=== PATIENT | male | born 1980 | race Caucasian/White ===

== ENCOUNTER 2016-10-29 19:29 | Emergency (ER) | payer MEDICAID ==
[2016-10-29 19:44] VITALS: BP 112/85
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
== END 2016-10-29 20:09 | disposition left against medical advice (07) ==
LOC: ER 19:29
DX: G40.909 Epilepsy, unspecified, not intractable, without status epilepticus (principal); J44.9 Chronic obstructive pulmonary disease, unspecified; J45.909 Unspecified asthma, uncomplicated; Z91.013 Allergy to seafood
CPT/HCPCS: 99281

== ENCOUNTER 2017-02-06 15:10 | Emergency (ER) | payer MEDICAID, OTHER ==
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
[2017-02-06] MEDS ORDERED: NORMAL SALINE 250 ML IV PRN (15:19)
[2017-02-06] MEDS ORDERED: FENTANYL CITRATE INJ/PF 100 MCG/2 ML AMPUL ONE (15:33)
[2017-02-06 15:34] LABS: PROTHROMBIN TIME 13.7 SEC (11.4-15.4)
[2017-02-06 15:35] LABS: PARTIAL THROMBOPLASTIN TIME 26.7 SEC (23.5-35.8)
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
[2017-02-06 15:44] LABS: ALANINE AMINOTRANSFERASE 57 U/L (21-72); ALBUMIN 4.3 g/dL (3.5-5.0); ALKALINE PHOSPHATASE 118 U/L (38-126); ANION GAP 13 (5-19); ASPARTATE AMINO TRANSFERASE 60 U/L (17-59); BILIRUBIN,DIRECT 0.3 mg/dL (0.0-0.4); BILIRUBIN,TOTAL 0.7 mg/dL (0.2-1.3); BLOOD UREA NITROGEN 6 mg/dL (7-20); CALCIUM 9.4 mg/dL (8.4-10.2); CARBON DIOXIDE 16 mmol/L (22-30); CHLORIDE 107 mmol/L (98-107); CREATININE RESULT 0.74 mg/dL (0.52-1.25); GLUCOSE 214 mg/dL (75-110); POTASSIUM 4.4 mmol/L (3.6-5.0); SODIUM 136.2 mmol/L (137-145); TOTAL PROTEIN 7.9 g/dL (6.3-8.2)
[2017-02-06] MEDS ORDERED: LEVETIRACETAM 1500 MG/NACL-ISO 100 ML IV ONE (15:49)
[2017-02-06 15:52] LABS: HEMOGLOBIN 16.7 g/dL (13.5-17.0); HGB HCT DIFFERENCE -0.9; MEAN CORPUSCULAR HEMOGLOBIN 27.3 pg (27.0-33.4); MEAN CORPUSCULAR HGB CONC 32.7 g/dL (32.0-36.0); MEAN CORPUSCULAR VOLUME 84 fl (80-97); RED CELL DISTRIBUTION WIDTH 14.1 % (11.5-14.0)
[2017-02-06 15:57] LABS: BAND NEUTROPHILS % (MANUAL) 2 % (3-5); BASOPHILS % (MANUAL) 0 % (0-2); EOSINOPHILS % (MANUAL) 2 % (0-6); LYMPHOCYTES % (MANUAL) 6 % (13-45); TOTAL CELLS COUNTED 100
[2017-02-06 15:59] LABS: ANISOCYTOSIS SLIGHT; TOXIC GRANULATION SLIGHT
[2017-02-06 16:06] LABS: WHITE BLOOD COUNT 34.7 10^3/uL (4.0-10.5)
[2017-02-06 16:32] LABS: APPEARANCE,URINE SLIGHTLY-CLOUDY; BILIRUBIN,URINE NEGATIVE (NEGATIVE); GLUCOSE, URINE NEGATIVE (NEGATIVE); KETONES,URINE TRACE mg/dL (NEGATIVE); LEUKOCYTE ESTERASE,URINE NEGATIVE (NEGATIVE); NITRITE,URINE NEGATIVE (NEGATIVE); PROTEIN,URINE 100 mg/dL (NEGATIVE); URINE SPECIFIC GRAVITY 1.015; UROBILINOGEN,URINE NEGATIVE mg/dL (<2.0)
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
[2017-02-06] MEDS ORDERED: FENTANYL CITRATE INJ/PF 100 MCG/2 ML AMPUL IV ONE ×2 (17:17)
[2017-02-06] MEDS ORDERED: DIPH/PERTUSS(ACELL)/TETANUS VAC/PF 0.5 ML SYR (>=10YO) IM ONE (17:54)
[2017-02-06] MEDS ORDERED: CEFAZOLIN 1 GM/D5W RTU 50 ML IV ONE (17:54)
[2017-02-06 18:33] VITALS: BP 125/89
--- NOTE | 2017-02-07 07:13 | EKG REPORT ---
SEVERITY:- ABNORMAL ECG - SINUS TACHYCARDIA NONSPECIFIC INTRAVENTRICULAR CONDUCTION DELAY : Confirmed by: Christina Waters MD 07-Feb-2017 07:13:15
[2017-02-08 14:20] LABS: PATH REVIEW PATHOLOGIST REVIEWED
== END 2017-02-06 18:03 | disposition short-term general hospital (02) ==
LOC: ER 15:10
PROC: 0HQ0XZZ Repair Scalp Skin, External Approach (ICD-10-PCS; principal; 2017-02-06)
DX: S32.049A Unspecified fracture of fourth lumbar vertebra, initial encounter for closed fracture (principal); S22.089A Unspecified fracture of T11-T12 vertebra, initial encounter for closed fracture; S06.0X1A Concussion with loss of consciousness of 30 minutes or less, initial encounter; S01.01XA Laceration without foreign body of scalp, initial encounter; S01.81XA Laceration without foreign body of other part of head, initial encounter; V47.5XXA Car driver injured in collision with fixed or stationary object in traffic accident, initial encounter; M54.2 Cervicalgia; M54.9 Dorsalgia, unspecified; R10.9 Unspecified abdominal pain; R10.812 Left upper quadrant abdominal tenderness; I95.9 Hypotension, unspecified; R00.0 Tachycardia, unspecified; J44.9 Chronic obstructive pulmonary disease, unspecified; Z79.899 Other long term (current) drug therapy; Z88.6 Allergy status to analgesic agent; Z91.013 Allergy to seafood
CPT/HCPCS: 93005; 99291; 99292; 90471; 96374; 96375; 86900; 86901; 36415; 36430; 86850; 85025; 85610; 85730; 80053; 81001; 86920; 71010; 70450; 71260; 72125; 74177; 93010; 12005; P9016; J1953

== ENCOUNTER → 2017-04-04 | Outpatient (CLI) | payer MEDICAID ==
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
--- NOTE | 2017-04-04 18:06 | RADIOLOGY REPORT (SQ) ---
EXAM DESCRIPTION: CT LUMBAR SPINE WITHOUT COMPLETED DATE/TIME: 04/04/2017 2:10 pm REASON FOR STUDY: WEDGE COMPRSN FX UNSP LUM VERTEBRA, SUBS FOR FX W ROUTN HEAL (S32.000D) S22.009A UNSP FRACTURE OF UNSP THORACIC VERTEBRA, INIT FOR C S32.000D WEDGE COMPRSN FX UNSP LUM VERTEBRA, SUB S FOR FX W R COMPARISON: CT thoracic spine same date CT lumbar spine 02/24/2016 CT abdomen pelvis 02/06/2017 Lumbar spine plain films 03/25/2016 TECHNIQUE: Axial images acquired through the lumbar spine without intravenous contrast. Images revi ewed with lung, soft tissue and bone windows. Reconstructed coronal and sagittal MPR images reviewed . All images stored on PACS. All CT scanners at this facility use dose modulation, iterative reconstruction, and/or weight based d osing when appropriate to reduce radiation dose to as low as reasonably achievable (ALARA). [facility]: Dose Right [facility]: CareDose [facility]: Dose Right [facility]: Teradose 4D [facility]: [employer] RADIATION DOSE: Up-to-date CT equipment and radiation dose reduction techniques were employed. CTDIv ol: 28.9 mGy. DLP: 791 mGy-cm. mGy. LIMITATIONS: None. FINDINGS: SEGMENTATION: There is a small disc space between the S1 and S2 levels. ALIGNMENT: Normal. VERTEBRAL BODIES: Chronic compression deformities are present and T12 and L1, greater than 50% loss o f height at these levels. There is mild dorsal bowing of the bony cortex of L1 without high-grade ce ntral canal narrowing. The L4 fracture seen on CT abdomen pelvis 02/06/2017 has progressed. There is now 50% overall loss of height at the L4 vertebral body and posterior retropulsion of the inferior posterior corner of L4 cau sing about 25% canal compromise best shown on axial image 54, and sagittal reconstruction image 19. DISCS: No lumbar disc protrusion/ herniation. At the L4-5 level, there is mild central canal stenosis and moderate bilateral foraminal narrowing re lated to the L4 compression fracture with retropulsion and lateral displacement of bony fragments. PEDICLES, TRANSVERSE PROCESSES: No fractures. No dislocation. No acute findings. FACETS, POSTERIOR ELEMENTS: No fractures. No dislocation. No spinal stenosis. HARDWARE: None in the spine. VISUALIZED RIBS: No fractures. SOFT TISSUES: No significant or acute finding in adjacent soft tissues. OTHER: No other significant finding. IMPRESSION: L4 compression deformity with 50% overall loss of height of the L4 vertebral body, a pos terior retropulsion of the inferior corner of L4 vertebral body causing mild central canal narrowing. There is also progression of bilateral foraminal stenosis at L4-[address] exam from 2016. TECHNICAL DOCUMENTATION: JOB ID: [id number] Quality ID # [id number]: Final reports with documentation of one or more dose reduction techniques (e.g., Au tomated exposure control, adjustment of the mA and/or kV according to patient size, use of iterative reconstruction technique) 2010 [employer]- All Rights Reserved
== END ==
LOC: RAD 13:42
PROVIDERS: ATTEND Neurological Surgery
DX: S22.009A Unspecified fracture of unspecified thoracic vertebra, initial encounter for closed fracture (principal); S32.000D Wedge compression fracture of unspecified lumbar vertebra, subsequent encounter for fracture with routine healing
CPT/HCPCS: 72128; 72131

== ENCOUNTER → 2017-05-14 | Outpatient (CLI) | payer MEDICAID ==
--- NOTE | 2017-05-14 15:55 | RADIOLOGY REPORT (SQ) ---
EXAM DESCRIPTION: MRI LUMBAR SPINE WITHOUT COMPLETED DATE/TIME: 05/14/2017 12:09 pm REASON FOR STUDY: STABLE BURST FX OF UNSPECIFIED LUMBAR VERTEBRA, R32 UNSPECIFIED URINARY INCONTINE NCE S32.001K STABLE BURST FX UNSP LUM VERTEBRA, SUBS FOR FX W NO COMPARISON: MRI lumbar spine 06/25/2014, 10/04/2015. CT abdomen pelvis 02/06/2017 CT lumbar spine 04/04/2017 CT chest 02/06/2017 TECHNIQUE: Sagittal and Axial imaging includes T1, T2, STIR and gradient echo sequences. Coronal T2/ HASTE imaging. LIMITATIONS: None. FINDINGS: VISUALIZED UPPER ABDOMEN: Limited evaluation. No acute or suspicious findings suggested. SEGMENTATION: Tiny disc space between the S1 and S2 level ALIGNMENT: Anatomic. VERTEBRAE: Chronic appearing central upper endplate depression at T11 is present without overall T11 vertebral body loss of height Greater than 50% compression deformities at T12 and L1, nonacute. Greater than 50% compression of L4. There is some marrow edema in the upper half of the L4 vertebral body, related to subacute compression deformity. Bone densitometry is recommended in this patient, he has 36 years old with multiple compression defor mities. BONE MARROW: Mild marrow edema in the upper half of L4 from subacute fracture DISC SIGNAL: Decreased T2 weighted intervertebral disc signal at L4-5 POSTERIOR ELEMENTS: Generally intact. No pars defect evident. HARDWARE: None in the spine. CORD AND CONUS: Normal in size and signal intensity. Conus at the L1-2 level. SOFT TISSUES: No aortic aneurysm seen. No bulky retroperitoneal adenopathy or mass. No paraspinal mas s or fluid. T10-11: At the upper edge of the field of view. No central stenosis. No gross foraminal narrowing T11-12: Borderline central canal narrowing at T11-12 is present related to mild posterior disc bulgi ng and slight retropulsion of the posterosuperior corner of T12 from compression deformity. This is best shown on axial T2 image 3. Mild bilateral facet hypertrophy with mild bilateral foraminal narro wing. T12-L1: Borderline central canal narrowing slight retropulsion of the posterosuperior corner of L1 f rom compression deformity. Mild bilateral facet and ligament hypertrophy. No foraminal stenosis. L1-L2: No significant spinal stenosis or exit foraminal stenosis. Mild bilateral facet hypertrophy L2-L3: No significant spinal stenosis or exit foraminal stenosis. Mild bilateral facet hypertrophy. L3-L4: No significant posterior disc bulging. Mild bilateral facet hypertrophy. At the this level a t L3-4, there is no significant central or foraminal encroachment. L4-L5: Subacute compression deformity at L4. This retropulsion of the posterior inferior corner of L 4. This bony retropulsion causes mild to moderate central canal narrowing and flattening of the thec al sac along the lateral recesses containing the bilateral proximal L5 nerve roots. These changes ar e best shown on axial T2 images 29-32. Elsewhere at L4-5 there is mild bilateral facet and ligament hypertrophy. High-grade bilateral roni inal narrowing is present with effacement of the fat around the exiting L4 nerve roots, best shown on sagittal images 3-5, and sagittal images 11-13. L5-S1: No significant spinal stenosis or exit foraminal stenosis. Mild bilateral facet hypertrophy SACRUM: Visualized upper sacrum intact. OTHER: No other significant findings. IMPRESSION: Multiple compression fractures in a younger patient, bone densitometry recommended Persistent edema along the L4 fracture, first seen on CT exam 02/06/2017. Since that time there has be en further retropulsion of the posterior inferior corner of L4 which now causes mild to moderate cent ral canal narrowing and flattens the thecal sac bilaterally at the takeoff of the bilateral proximal L5 nerve roots. High-grade bilateral foraminal narrowing at L4-5. TECHNICAL DOCUMENTATION: JOB ID: [id number] [employer]- All Rights Reserved
== END ==
LOC: RAD 11:01
PROVIDERS: ATTEND Neurological Surgery
DX: S32.001K Stable burst fracture of unspecified lumbar vertebra, subsequent encounter for fracture with nonunion (principal)
CPT/HCPCS: 72148

== ENCOUNTER → 2017-08-21 | Outpatient (CLI) | payer MEDICAID ==
--- NOTE | 2017-08-21 14:18 | RADIOLOGY REPORT (SQ) ---
EXAM DESCRIPTION: CT LUMBAR SPINE WITHOUT COMPLETED DATE/TIME: 08/21/2017 1:59 pm REASON FOR STUDY: M54.16 RADICULOPATHY, LUMBAR REGION M54.16 RADICULOPATHY, LUMBAR REGION COMPARISON: MRI lumbar spine 06/25/2014, 10/04/2015, 05/14/2017 CT lumbar spine 02/24/2016, 04/04/2017 Lumbar spine plain films 03/07/2016, 03/25/2016 CT abdomen and pelvis 02/06/2017 TECHNIQUE: Axial images acquired through the lumbar spine without intravenous contrast. Images revi ewed with lung, soft tissue and bone windows. Reconstructed coronal and sagittal MPR images reviewed . All images stored on PACS. All CT scanners at this facility use dose modulation, iterative reconstruction, and/or weight based d osing when appropriate to reduce radiation dose to as low as reasonably achievable (ALARA). [facility]: Dose Right [facility]: CareDose [facility]: Dose Right [facility]: Teradose 4D [facility]: [employer] RADIATION DOSE: 24.5 mGy. LIMITATIONS: None. FINDINGS: SEGMENTATION: The most inferior well-developed disc space is labeled L5-S1. No transition al anatomy. ALIGNMENT: Normal. VERTEBRAL BODIES: Chronic appearing 50% compression deformities of T12 and L1. 50% compression L4 is present with mild retropulsion of the posterior inferior corner of the L4 vertebral body causing mil d flattening of the ventral thecal sac. 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 At L4-5, there is mild posterior retropulsion of the posterior inferior bony cortex L4 vertebral body , partly effacing the ventral epidural fat and abutting the ventral sac. There is a bilateral daly ctomy at L4, with central canal decompression. However, there is high-grade right L4-5 foraminal floridalma nosis related to facet arthropathy and retropulsion the posterior inferior corner of L4. This best s hown on sagittal reconstruction images 19-22. There is moderate to high-grade left foraminal narrowi ng at L4-5 from retropulsion of bony fragments and facet hypertrophy best shown on sagittal images 29 -35. At L5-S1, no significant central or foraminal encroachment is present PEDICLES, TRANSVERSE PROCESSES: No fractures. No dislocation. No acute findings. FACETS, POSTERIOR ELEMENTS: Bilateral laminectomy at L4. No spondylolysis. Facet arthropathy at L4- 5. HARDWARE: Bilateral transpedicular screws and dorsal fixation plates at L3, L4, and L5 VISUALIZED RIBS: No fractures. SOFT TISSUES: No significant or acute finding in adjacent soft tissues. OTHER: No other significant finding. IMPRESSION: Significant bilateral foraminal narrowing at L4-5 TECHNICAL DOCUMENTATION: JOB ID: [id number] Quality ID # [id number]: Final reports with documentation of one or more dose reduction techniques (e.g., Au tomated exposure control, adjustment of the mA and/or kV according to patient size, use of iterative reconstruction technique) 2010 [employer]- All Rights Reserved
== END ==
LOC: RAD 14:13
DX: M54.16 Radiculopathy, lumbar region (principal); M48.061 Spinal stenosis, lumbar region without neurogenic claudication; Z98.1 Arthrodesis status
CPT/HCPCS: 72131